=== PATIENT | female | born 1990 | race Caucasian/White ===

== ENCOUNTER → 2018-05-17 12:37 | Outpatient (CLI) | payer OTHER, SELFPAY ==
[2018-05-17 14:11] LABS: Absolute Lymphocyte Count 1.82 X10^3/ul (0.83-4.51); Absolute Neutrophil Count 3.6 X10^3/uL (2.0-7.7); Basophil# 0.03 X10^3/uL; Basophil% 0.5 % (0-1); Eosinophil# 0.04 X10^3/uL; Eosinophils% 0.7 % (0-5); Hemoglobin 15.2 g/dl (12.0-15.0); Lymphocyte # 1.82 X10^3/ul (4.0); Lymphocyte % 30.3 % (19-41); Mean Corp Hgb Conc 34.5 g/gl (32-36); Mean Corpuscular Hgb 31.4 pg (27.0-32.0); Mean Corpuscular Volume 90.9 fL (81-99); Mean Platelet Vol. 10.1 fl (6.2-12.0); Monocyte# 0.56 X10^3/uL; Monocyte% 9.3 % (0-10); Neutrophil # 3.55 X10^3/uL (2.7-7.7); POSITIVE COUNT NO; POSITIVE DIFFERENTIAL NO; POSITIVE MORPHOLOGY NO; Platelet Count 172 K/mm3 (150-450); RBC Distribution Width CV 12.3 % (11.6-14.6); RBC Distribution Width SD 40.9 fl (35.1-43.9); Red Blood Count 4.84 M/mm3 (4.2-5.4)
[2018-05-17 14:34] LABS: ALB/GLOB Ratio 1.2 RATIO (0.9-2.4); AST(SGOT) 18 U/L (15-37); Alanine Aminotransfer ALT/SGPT 24 U/L (13-56); Albumin, Serum 4.2 g/dL (3.2-5.0); Alkaline Phosphatase 52 U/L (45-117); Amylase 85 U/L (25-115); Anion Gap 8 (5-15); BUN 12 mg/dL (7-18); BUN/Creat Ratio 10.9 RATIO (10-20); Calcium,Total 9.2 mg/dL (8.5-10.1); Chloride 104 mmol/L (98-107); EST Glomerular Filtration Rate 63 mL/min (>60); Est Glom Filt Rate - Afr Amer 77 mL/min (>60); Globulin 3.6 g/dL (2.2-4.2); Glucose 80 mg/dL (74-106); Lipase 324 U/L (73-393); Potassium 3.7 mmol/L (3.5-5.1); Protein, Total 7.8 g/dL (6.4-8.2); Sodium Level 140 mmol/L (136-145)
== END ==
PROVIDERS: Family Provider Family Medicine; PCP Family Medicine; Visit Provider Family Medicine
DX: R10.84 Generalized abdominal pain (principal)
CPT/HCPCS: 36415; 80053; 82150; 83690; 85025

== ENCOUNTER → 2018-05-20 09:51 | Outpatient (CLI) | payer OTHER, SELFPAY ==
--- NOTE | 2018-05-20 09:53 | US_ITS ---
STUDY: ABDOMINAL ULTRASOUND - RIGHT UPPER QUADRANT REASON FOR VISIT: Female, 27 years old. General intermittent abdominal pain with nausea and vomiting. TECHNIQUE: Ultrasound evaluation of the right upper quadrant was performed with real-time and static garcia-scale imaging. TECHNICAL QUALITY: Adequate. COMPARISON: None. FINDINGS: Liver: The liver measures 15.2 cm. There is normal echogenicity of the liver. The bile ducts are within normal limits. There is hepatic color flow. The direction of portal flow is hepatopetal. There is no demonstrated mass lesion. Gallbladder: Normal distended gallbladder. The gallbladder wall measures 2.3 mm. There is a negative sonographic Jacobo's sign. There is no pericholecystic fluid. There are no gallstones. Common Bile Duct (C.B.D.): The common bile duct measures 3.6 mm. Pancreas: Normal size of the head, body and tail of the pancreas. There is normal echogenicity of the pancreas. There is no demonstrated pancreatic mass or cyst. Right Kidney: Normal size of the right kidney. The right kidney measures 9.8 cm x 4.5 cm 4.8 cm. Normal renal cortex. The right cortex measures 1.2 cm. There is a 1.1 cm x 0.9 cm x 1.2 cm right renal cyst. There is no right hydronephrosis. US/Abdomen Limited IMPRESSION: Small right renal cyst. Electronically Signed: Glen Catherine MD at 15:35 EDT Tel [phone], Service support ,
== END ==
PROVIDERS: Family Provider Family Medicine; PCP Family Medicine; Visit Provider Family Medicine
DX: R11.2 Nausea with vomiting, unspecified (principal)
CPT/HCPCS: 76705

== ENCOUNTER → 2021-08-18 08:18 | Outpatient (CLI) | payer BC, SELFPAY ==
[2021-08-18 11:01] LABS: Anion Gap 7 (5-15); BUN 11 mg/dL (7-18); BUN/Creat Ratio 13.3 RATIO (10-20); Calcium,Total 8.8 mg/dL (8.5-10.1); Chloride 105 mmol/L (98-107); Cholesterol 208 mg/dL (200); Creatinine, Serum 0.83 mg/dL (0.55-1.02); EST Glomerular Filtration Rate 86 mL/min (>60); Est Glom Filt Rate - Afr Amer 104 mL/min (>60); Ferritin 12 ng/mL (8-252); Glucose 81 mg/dL (74-106); High Density Lipoprotein 77 mg/dL; Iron 133 ug/dL (50-170); Potassium 3.7 mmol/L (3.5-5.1); Sodium Level 138 mmol/L (136-145); Thyroid Stim Hormone (TSH) 1.94 uIU/mL (0.358-3.74); Triglycerides 145 mg/dL; Very Low Density Lipoprotein 29 mg/dL (5-40)
[2021-08-18 11:07] LABS: Vitamin D,25 Hydroxy 50.2 ng/mL
== END ==
PROVIDERS: PCP Family Medicine; Referring Provider Family Medicine; Visit Provider Family Medicine
DX: F41.9 Anxiety disorder, unspecified (principal); R53.83 Other fatigue; Z13.1 Encounter for screening for diabetes mellitus; Z13.220 Encounter for screening for lipoid disorders
CPT/HCPCS: 36415; 80048; 80061; 82306; 82728; 83540; 84443

== ENCOUNTER 2022-02-15 09:55 | Outpatient (CLI) | payer BC, SELFPAY ==
--- NOTE | 2022-02-15 10:16 | ECHOD_ITS ---
Reason For Study: BICUSPID AO Procedure This was a 2D Doppler, Color Flow transthoracic echocardiogram. Exam performed in department. Left Ventricle Normal LV size. Left ventricular systolic function is normal. The estimated ejection fraction is 55 %. Normal diastology for age. No regional wall motion abnormalities noted. Right Ventricle Normal RV size. Normal systolic function. Atria Normal left atrium. Normal right atrium. Mitral Valve Normal mitral valve. Tricuspid Valve Normal tricuspid valve. Mild tricuspid valve insufficiency. Pulmonary artery systolic pressure is 23 mmHg. Aortic Valve Bicuspid aortic valve. Mild aortic stenosis. Pulmonic Valve Normal pulmonic valve. Great Vessels Normal aortic root. The pulmonary artery is normal size. Normal inferior vena cava. Pericardium/Pleural No pericardial effusion. MMode/2D Measurements & Calculations LVIDd: 4.7 cm IVSd: 0.75 cm LVOT diam: 1.6 cm LVIDs: 2.5 cm LVPWd: 0.57 cm LVOT area: 2.0 cm2 RVDd: 2.6 cm FS: 46.8 % Ao root diam: 2.2 cm LAV(MOD-sp4): 22.7 ml LVAd ap4: 24.7 cm2 LVLd ap4: 6.6 cm EDV(MOD-sp4): 76.1 ml EDV(sp4-el): 78.3 ml LVAs ap4: 14.1 cm2 LVLs ap4: 5.6 cm ESV(MOD-sp4): 30.3 ml ESV(sp4-el): 30.2 ml EF(MOD-sp4): 60.2 % EF(sp4-el): 61.4 % SV(MOD-sp4): 45.8 ml SV(sp4-el): 48.1 ml LA A4 area: 11.0 cm2 LA dimension(2D): 2.5 cm RA A4 area: 12.0 cm2 Doppler Measurements & Calculations MV E max hi: 113.8 cm/sec Lat Peak E' Hi: 12.0 cm/sec Med Peak E' Hi: 11.7 cm/sec MV A max hi: 59.9 cm/sec E/E' lat: 9.5 E/E' med: 9.7 MV E/A: 1.9 Ao V2 max: 183.9 cm/sec LV V1 max: 122.9 cm/sec SV(LVOT): 50.0 ml Ao max P.5 mmHg LV V1 max P.0 mmHg Ao V2 mean: 131.1 cm/sec LV V1 mean P.3 mmHg Ao mean P.6 mmHg LV V1 mean: 86.3 cm/sec Ao V2 VTI: 38.7 cm LV V1 VTI: 25.5 cm CHINMAY(I,D): 1.3 cm2 CHINMAY(V,D): 1.3 cm2 PA V2 max: 78.0 cm/sec TR max hi: 220.0 cm/sec TR max P.4 mmHg ECHO/Echo Complete Interpretation Summary Normal LV size. Left ventricular systolic function is normal. The estimated ejection fraction is 55 %. Bicuspid aortic valve. Normal aortic root. Mild aortic stenosis. Ordering Physician: Clarke Andino Referring Physician: Clarke Andino Performed By: Donna Zhao RCS
== END 2022-02-15 23:59 | disposition home or self-care (01) ==
PROVIDERS: PCP Family Medicine; Referring Provider Internal Medicine Cardiovascular Disease; Visit Provider Internal Medicine Cardiovascular Disease
DX: Q23.1 Congenital insufficiency of aortic valve (principal); Q25.1 Coarctation of aorta
CPT/HCPCS: 93306

== ENCOUNTER → 2022-03-29 | Outpatient (CLI) | payer BC, SELFPAY ==
[2022-03-29 10:49] LABS: Absolute Lymphocyte Count 1.43 X10^3/uL (0.83-4.51); Absolute Neutrophil Count 2.4 X10^3/uL (2.0-7.7); Basophil# 0.03 X10^3/uL; Basophil% 0.7 % (0-1); Eosinophil# 0.11 X10^3/uL; Eosinophils% 2.5 % (0-5); Hematocrit 42.8 % (37-47); Hemoglobin 14.2 g/dL (12.0-15.0); Lymphocyte # 1.43 X10^3/ul (0.83-4.51); Lymphocyte % 32.4 % (19-41); Mean Corp Hgb Conc 33.2 g/dL (32-36); Mean Corpuscular Hgb 30.3 pg (27.0-32.0); Mean Corpuscular Volume 91.5 fL (81-99); Mean Platelet Vol. 9.1 fl (6.2-12.0); Monocyte# 0.48 X10^3/uL; Monocyte% 10.9 % (0-10); NRBC Flagged by Analyzer 0 % (0-5); Neutrophil # 2.35 X10^3/uL (2.7-7.7); Neutrophil % 53.3 % (47-70); Platelet Count 167 K/mm3 (150-450); RBC Distribution Width CV 12.2 % (11.6-14.6); RBC Distribution Width SD 40.7 fl (35.1-43.9); Red Blood Count 4.68 M/mm3 (4.2-5.4); White Blood Count 4.4 K/mm3 (4.4-11.0)
[2022-03-29 10:59] LABS: Anion Gap 3 (5-15); BUN 17 mg/dL (7-18); BUN/Creat Ratio 21.4 RATIO (10-20); Calcium,Total 8.9 mg/dL (8.5-10.1); Chloride 107 mmol/L (98-107); Cholesterol 158 mg/dL (200); EST Glomerular Filtration Rate 90 mL/min (>60); Est Glom Filt Rate - Afr Amer 108 mL/min (>60); Glucose 94 mg/dL (74-106); High Density Lipoprotein 53 mg/dL; Potassium 4.1 mmol/L (3.5-5.1); Sodium Level 138 mmol/L (136-145); T4 Free Direct 0.86 ng/dL (0.76-1.46); Triglycerides 67 mg/dL; Very Low Density Lipoprotein 13 mg/dL (5-40)
== END | disposition home or self-care (01) ==
PROVIDERS: PCP Family Medicine; Referring Provider Family Medicine; Visit Provider Nurse Practitioner Family
DX: R63.5 Abnormal weight gain (principal)
CPT/HCPCS: 36415; 80048; 80061; 83036; 84439; 84443; 85025

== ENCOUNTER → 2022-11-30 | Outpatient (CLI) | payer OTHER, SELFPAY ==
[2022-11-30 17:44] LABS: Hemoglobin 14.2 g/dL (12.0-15.0); Mean Corpuscular Hgb 30.6 pg (27.0-32.0); Mean Corpuscular Volume 92.7 fL (81-99); Platelet Count 185 K/mm3 (150-450); RBC Distribution Width CV 12.6 % (11.6-14.6); RBC Distribution Width SD 42.7 fl (35.1-43.9); Red Blood Count 4.64 M/mm3 (4.2-5.4); White Blood Count 4.8 K/mm3 (4.4-11.0)
[2022-11-30 18:03] LABS: Vitamin D,25 Hydroxy 60.8 ng/mL
[2022-11-30 18:21] LABS: ALB/GLOB Ratio 0.9 RATIO (0.9-2.4); AST(SGOT) 20 U/L (15-37); Alanine Aminotransfer ALT/SGPT 24 U/L (13-56); Albumin, Serum 3.3 g/dL (3.2-5.0); Alkaline Phosphatase 48 U/L (45-117); Anion Gap 9 (5-15); BUN 16 mg/dL (7-18); BUN/Creat Ratio 17.9 RATIO (10-20); Calcium,Total 8.8 mg/dL (8.5-10.1); Chloride 106 mmol/L (98-107); EST Glomerular Filtration Rate 78 mL/min (>60); Est Glom Filt Rate - Afr Amer 94 mL/min (>60); Globulin 3.5 g/dL (2.2-4.2); Glucose 79 mg/dL (74-106); Potassium 3.8 mmol/L (3.5-5.1); Protein, Total 6.8 g/dL (6.4-8.2); Sodium Level 139 mmol/L (136-145); Thyroid Stim Hormone (TSH) 0.94 uIU/mL (0.358-3.74)
== END | disposition home or self-care (01) ==
LOC: MFPLAB 15:00
PROVIDERS: PCP Family Medicine; Referring Provider Family Medicine; Visit Provider Family Medicine
DX: F32.A Depression, unspecified (principal)
CPT/HCPCS: 36415; 80053; 82306; 84443; 85027

== ENCOUNTER → 2023-12-14 | Outpatient (CLI) | payer OTHER, SELFPAY ==
--- OUTSIDE RECORDS SUMMARY | 2023-12-14 08:23 | XMS RPT_ITS | CCD ---
Author Name Unknown Address [address] [place] [address] Organization [facility] Care Team Providers Care Internal Medicine Hospitalist Name Role Phone MD Andino Cyril S Unavailable Pita FERRER, Radha Mehta Unavailable [phone] MD Andino Cyril S Unavailable Sandy Steward MD Primary Care Provider Sandy Steward MD Primary Care Provider Sandy Steward MD Primary Care Provider Sandy Steward MD Primary Care Provider NEREIDA MENDOZA Attending Unavailable SANDY STEWARD Primary Care Unavailabl e Allergies Allergy Classification Reported Allergen(s) Allergy Type Date of Onset Reaction(s) Facility (12 sources) Seasonal allergy; Translations: [SEASONAL ALLERGIES] Propensity to adverse reactions 03-14-2016 [facility] Work Phone: Medications Current Medications Medication Drug Class(es) Dates Sig (Normalized) Sig (Original) 168 hr ethinyl estradiol 0.90089 mg/hr / norelgestromin 0.65201 mg/hr transdermal system (20 sources) Progestin, Estrogen Start: 10-01-2023 apply 1 dose transdermal route every week XULANE 150-35 mcg/24 hr patch Indications: Encounter for surveillance of transdermal patch hormonal contraceptive device APPLY 1 PATCH DIRECTED ONCE A WEEK, CONTINUOUS USE. NO IN ACTIVE WEEK. 12 Patch 4 10/01/2023 Active Completed/Discontinued Medications Medication Drug Class(es) Dates Sig (Normalized) Sig (Original) amoxicillin 500 mg oral tablet (7 sources) Penicillin-class Antibacterial Start: 09-25-2017 take 4 tablets by mouth every hour AMOXICILLIN 500 MG TABS 4 tablets by mouth 1 hr prior to procedure AMOXICILLIN [id number] Clarke Andino MD Problems Active Problems Problem Classification Problem Date Documented Date Episodic/Chronic Cardiac and circulatory congenital anomalies (17 sources) Coarctation of aorta; Translations: [Bicuspid aortic valve] Onset: 07-27-2015 07-27-2015 Chronic Contraceptive and procreative management (8 sources) Patient encounter status; Translations: [Encounter for removal of intrauterine contraceptive device] Episodic Past or Other Problems Problem Classification Problem Date Documented Date Episodic/Chronic Cardiac and circulatory congenital anomalies (3 sources) History of repair of coarctation of aorta; Translations: [Personal history of (corrected) congenital malformations of heart and circulatory system] Onset: 07-27-2015 07-27-2015 Episodic Results Test Name Value Interpretation Reference Range Facil ity Vital Signs Date Time Vital Sign Value Performing Clinician Arsen selby 10-01-2023 06:55-0500 Body height 157.5 cm Nereida Gheens ANALOG DEVICE DESIGNER.HEAD WRESTLING COACH Work Phone: [facility] 10-01-2023 06:55-0500 Body weight 66.13 kg Nereida Gheens ANALOG DEVICE DESIGNER.HEAD WRESTLING COACH Work Phone: [facility] 10-01-2023 06:55-0500 Diastolic blood pressure 60 mm[Hg] Nereida Reji ANALOG DEVICE DESIGNER.HEAD WRESTLING COACH Work Phone: [facility] 10-01-2023 06:55-0500 Systolic blood pressure 120 mm[Hg] Nereida Gheens ANALOG DEVICE DESIGNER.HEAD WRESTLING COACH Work Phone: [facility] 05-29-2022 08:01-0400 Body weight 63.96 kg Nereida Reji ANALOG DEVICE DESIGNER.HEAD WRESTLING COACH Work Phone: [facility] 05-29-2022 08:01-0400 Diastolic blood pressure 64 mm[Hg] Nereida Reji ANALOG DEVICE DESIGNER.HEAD WRESTLING COACH Work Phone: [facility] 05-29-2022 08:01-0400 Systolic blood pressure 104 mm[Hg] Nereida Reji ANALOG DEVICE DESIGNER.HEAD WRESTLING COACH Work Phone: [facility] 07-12-2017 16:28-0400 BMI (Body Mass Index) 22.29 kg/m2 MD [facility] Work Phone: 07-12-2017 16:28-0400 BP Diastolic 48 mm[Hg] MD [facility] Work Phone: 07-12-2017 16:28-0400 BP Diastolic 64 mm[Hg] MD [facility] Work Phone: 07-12-2017 16:28-0400 BP Systolic 84 mm[Hg] MD [facility] Work Phone: 07-12-2017 16:28-0400 BP Systolic 110 mm[Hg] MD [facility] Work Phone: 07-12-2017 16:28-0400 Height 154.94 cm MD [facility] Work Phone: 07-12-2017 16:28-0400 Pulse (Heart Rate) 64 /min MD [facility] Work Phone: 07-12-2017 16:28-0400 Respiratory Rate 20 /min Clarke Andino MD [facility] Work Phone: 07-12-2017 16:28-0400 Weight 53.52 kg MD [facility] Work Phone: 02-22-2016 16:25-0400 BSA (Body Surface Area) 1.48 m2 Clarke Andino MD [facility] Work Phone: Encounters Encounter Date Encounter Type Care Provider Facility Start: 10-01-2023 End: 10-01-2023 ambulatory NEREIDA REJI Facility:[facility] Start: 10-01-2023 End: 10-01-2023 Patient encounter procedure Nereida Reji ANALOG DEVICE DESIGNER.HEAD WRESTLING COACH Work Phone: OB/Gynecology Procedures Date Procedure Procedure Detail Performing Clinician Start: 02-22-2016 End: 02-22-2016 JANY Andino MD Start: 02-22-2016 End: 02-22-2016 Follow Up Appt 1 year Clarke Andino MD Start: 02-22-2016 End: 02-22-2016 JANY Andino MD Start: 02-22-2016 End: 02-22-2016 Follow Up Appt 1 year Clarke Andino MD Start: 07-28-2015 End: 12-10-2015 *ALESSANDRA Andino MD Start: 07-28-2015 End: 07-28-2015 JANY Andino MD Start: 07-28-2015 End: 12-10-2015 Echocardiography Clarke Andino MD Start: 07-28-2015 End: 07-28-2015 Follow Up Appt 6 months Pradip Christian Start: 07-28-2015 End: 12-10-2015 Lipid 1996 panel - Serum or Plasma Clarke Andino MD Start: 07-28-2015 End: 12-10-2015 Mra abdomen w/wo contrast material Clarke Andino MD Start: 07-28-2015 End: 12-10-2015 *ALESSANDRA Andino MD Start: 07-28-2015 End: 07-28-2015 JANY Andino MD Start: 07-28-2015 End: 12-10-2015 Echocardiography Clarke Andino MD Start: 07-28-2015 End: 07-28-2015 Follow Up Appt 6 months Pradip Christian Start: 07-28-2015 End: 12-10-2015 Lipid panel [AGGREGATE] Pradip Christian Start: 07-28-2015 End: 12-10-2015 Mri angio, abdom w orw/o dye Clarke Andino MD Start: 07-27-2015 History of repair of coarctation of aorta History of aortic coarctation repair Niurka Shukla MD Work Phone: Plan of Treatment Date Care Activity Detail Author Start: 10-07-2026 HPV TESTING HPV TESTING [facility] Start: 10-07-2026 PAP TESTING PAP TESTING [facility] Start: 03-22-2026 Urine microalbumin profile [facility] Start: 07-06-2023 Covid-19 Vaccine () Covid-19 Vaccine () [facility] Start: 07-06-2023 Influenza vaccination [facility] Start: 11-05-2022 DEPRESSION ASSESSMENT DEPRESSION ASSESSMENT [facility] Start: 07-06-2022 Influenza vaccination INFLUENZA (#1) [facility] Start: 11-05-2021 DEPRESSION ASSESSMENT DEPRESSION ASSESSMENT [facility] Start: 10-21-2021 COVID-19 VACCINE (4 - Booster for Moderna series) COVID-19 VACCINE (4 - Booster for Moderna series) [facility] Start: 10-21-2021 COVID-19 VACCINE (4 - Moderna series) COVID-19 VACCINE (4 - Moderna series) [facility] Start: 07-11-2018 End: 07-11-2018 Appointment Appointment [facility] Work Phone: Start: 07-12-2017 End: 07-12-2017 HVAC JOURNEYMAN HVAC JOURNEYMAN [facility] Work Phone: Start: 07-12-2017 End: 07-12-2017 Follow Up Appt 1 year Follow Up Appt 1 year [facility] Work Phone: Start: 07-12-2017 End: 07-12-2017 HVAC JOURNEYMAN HVAC JOURNEYMAN [facility] Work Phone: Start: 07-12-2017 End: 07-12-2017 Follow Up Appt 1 year Follow Up Appt 1 year [facility] Work Phone: Start: 02-22-2016 End: 02-22-2016 HVAC JOURNEYMAN HVAC JOURNEYMAN [facility] Work Phone: Start: 02-22-2016 End: 02-22-2016 Follow Up Appt 1 year Follow Up Appt 1 year [facility] Work Phone: Start: 02-22-2016 End: 02-22-2016 HVAC JOURNEYMAN HVAC JOURNEYMAN [facility] Work Phone: Start: 02-22-2016 End: 02-22-2016 Follow Up Appt 1 year Follow Up Appt 1 year [facility] Work Phone: Start: 07-28-2015 End: 12-10-2015 *BMP *BMP [facility] Work Phone: Start: 07-28-2015 End: 07-28-2015 HVAC JOURNEYMAN HVAC JOURNEYMAN [facility] Work Phone: Start: 07-28-2015 End: 07-28-2015 Echocardiography Echocardiogram (complete) [facility] Work Phone: Start: 07-28-2015 End: 07-28-2015 Follow Up Appt 6 months Follow Up Appt 6 months [facility] Work Phone: Start: 07-28-2015 End: 08-02-2015 Lipid panel [AGGREGATE] *Lipid Profile CC PCP [facility] Work Phone: Start: 07-28-2015 End: 07-28-2015 Mra abdomen w/wo contrast material MRA (Various) [facility] Work Phone: Start: 07-28-2015 End: 12-10-2015 *BMP *BMP [facility] Work Phone: Start: 07-28-2015 End: 07-28-2015 HVAC JOURNEYMAN HVAC JOURNEYMAN [facility] Work Phone: Start: 07-28-2015 End: 07-28-2015 Echocardiography Echocardiogram (complete) [facility] Work Phone: Start: 07-28-2015 End: 07-28-2015 Follow Up Appt 6 months Follow Up Appt 6 months [facility] Work Phone: Start: 07-28-2015 End: 08-02-2015 Lipid panel [AGGREGATE] *Lipid Profile CC PCP [facility] Work Phone: Start: 07-28-2015 End: 07-28-2015 Mri angio, abdom w orw/o dye MRA (Various) [facility] Work Phone: Start: 2003 Adult depression screening assessment DEPRESSION SCREENING [facility] Start: 1991 HEPATITIS B (1 of 3 - 3-dose series) HEPATITIS B (1 of 3 - 3-dose series) [facility] Start: 1991 Hepatitis B Vaccine (1 of 3 - 3-dose series) Hepatitis B Vaccine (1 of 3 - 3-dose series) [facility] Removal intrauterine device iud REMOVE INTRAUTERINE DEVICE Procedures Routine Encounter for IUD removal Ordered: 05/22/2022 [facility] Work Phone: Immunizations Immunization Date Immunization Notes Care Provider Olga camp 08-09-2021 influenza virus vacc ine, unspecified formulation Nereida Mendoza APRN.CNP Work Phone: [facility] 03-22-2016 tetanus toxoid, redu willie diphtheria toxoid, and acellular pertussis vaccine, adsorbed Niurka Shukla MD Work Phone: [facility] Payers Date Payer Category Payer Private Health Insurance [employer] OAP [id number] 2022-Present [phone] [address] [place] [address] Open Access [id number] 2022 Private Health Insurance [id number] 2020 Unknown LEXI LAWSON PPO [id number] 2020-Present [phone] [address] [place] [address] PPO [id number] 2020 Unknown LEXI LAWSON PPO [id number] 2020-Present [phone] [address] [place] [address] PPO [id number] Social History Date Type Detail Facility Start: 03-14-2016 End: 10-01-2023 Tobacco smoking status NHIS Never smoked tobacco [facility] Work Phone: Start: 03-14-2016 End: 10-01-2023 Tobacco use and exposure Smokeless tobacco non-user [facility] Work Phone: Start: 12-30-2021 End: 10-01-2023 Alcohol intake Current drinker of alcohol (finding) [facility] Start: 09-17-2020 History SDOH Alcohol Frequency 4 [facility] Start: 09-17-2020 History SDOH Alcohol Std Drinks 1 [facility] Start: 10-07-2021 History SDOH Alcohol Comment occasional [facility] Start: 09-17-2020 History SDOH Social Connections Phone 5 [facility] Start: 09-17-2020 History SDOH Social Connections Membership 2 [facility] Start: 09-17-2020 History SDOH Social Connections Living 3 [facility] Start: 1990 Sex Assigned At Not on file [facility] Start: 05-29-2022 End: 07-24-2023 History of Social function [facility] Start: 05-29-2022 End: 07-24-2023 Tobacco use panel [facility] Do you belong to any clubs or organizations such as faith groups, unions, fraternal or athletic groups, or school groups? No [facility] Are you now , , , , never or living with a partner? [facility] How often to you hav e a drink containing alcohol? 2-3 time sa week [facility] How many standard dr inks containing alcohol do you have on a typical day? 1 or 2 [facility] How often do you hav e 6 or more drinks on 1 occasion? Never [facility] How hard is it for y ou to pay for the very basics like food, housing, medical care, and heating Not hard at all [facility] Do you feel stress - tense, restless, nervous, or anxious, or unable to sleep at night because your mind is troubled all the time - these days [OSQ] Not at all [facility] (I/We) worried wheth er (my/our) food would run out before (I/we) got money to buy more. Never true [facility] Start: 10-01-2023 Education 17 [facility] NEGATED: Highlighted rowStart: GIANLUCA History of tobacco use Passive smoker [facility] Work Phone: Clinical Notes 03-22-2022 to 10-01-2023 Nereida Mendoza APRN.CNP - 10/01/2023 6:54 AM ESTTelephone Encounter - Greta Magallanes RN - 09/11/2023 11:34 AM ESTTelephone Encounter - Stephanie Fischer RN - 07/12/2023 9:33 AM EDT Note Date & Type Note Facility 10-01-2023 Note HNO ID: [id number] Author: Nereida Mendoza APRN.HEAD WRESTLING COACH Service: ? Author Type: Nurse Practitioner Type: Progress Notes Filed: 10/01/2023 7:27 AM Note Text: patient declined fire control technician g Breanna is a 33 year old who presents for an annual gynecologic exam without complaints. She trying to convince her to get a vasectomy Menses: cycles every 21-24 days and 5 days of flow. Contraception: patch HPV vaccine: Yes Last Pap: 10/14/2021 normal HPV: 10/11/2021 negative History of abnormal pap: No Last mammogram: never Sexually active: Yes Pain with intercourse: No Postcoital bleeding: No OB History T0 L0 SAB0 IAB0 Ectopic0 Multiple0 Live Births0 Patient Advocate History LMP: 09/06/2023, IUD Age at Menarche: Age at First : Age at Menopause: Patient Advocate History Comments: Sexual Activity: Yes; Male; patch Contraception: Other PAST MEDICAL HISTORY Diagnosis Date Stridor PAST SURGICAL HISTORY Procedure Laterality Date APPENDECTOMY 11/05/2000 HEART SURGERY HX 1990 coarctation of aorta repair PAST SURGICAL HISTORY OF ingrown toe nails x4 FAMILY HISTORY Problem Relation Age of Onset other (endometriosis) Mother Colon Cancer Maternal Grandmother other (heart disease) Maternal Grandmother maternal grandfather Hypertension Maternal Grandfather Breast Cancer Paternal Grandmother SOCIAL HISTORY Social History Tobacco Use Smoking status: Never Passive exposure: Never Smokeless tobacco: Never Vaping Use Vaping Use: Never used Substance Use Topics Alcohol use: Yes Comment: occasional Drug use: No REVIEW OF SYSTEMS Abdomen: No abdominal pain, nausea, vomiting, diarrhea, or constipation. No bloating, early satiety, indigestion, or increased flatulence. Bladder: No dysuria, gross hematuria, urinary frequency, urinary urgency, or incontinence. Breast: No breast lumps, nipple d/c, overlying skin changes, redness or skin retraction. Allergies and current medication updated:Yes EXAM: Ht 5' 2 (1.58m) Wt 145 lb 12.8 oz (66.1kg) LMP 09/06/2023 BMI 26.66 kg/(m2). GENERAL: pleasant, female in no apparent distress HEENT: Normocephalic, atraumatic, mucus membranes moist, and no lesions NECK: Supple, full range of motion, no adenopathy, and thyroid normal DERMATOLOGY: Normal, without lesions, non-icteric, and non-hirsute BREAST: soft, non-tender, symmetric, no dominant mass, normal nipple-areolar complex, no lymphadenopathy, and no nipple discharge CHEST: Normal inspiratory effort ABDOMEN: soft, non-tender, and no masses PELVIC: external genitalia normal, normal Bartholin's glands, urethra, Setauket's glands, no vulvar lesions, no cervical lesions, good vaginal support, physiologic discharge present, normal appearing perineal body and perianal region BIMANUAL: uterus normal size, shape and consistency, no adnexal masses, and non-tender RECTOVAGINAL: deferred. NEURO: alert and oriented x3,exam grossly non-focal EXTREMITIES: normal ASSESSMENT/PLAN: 1) Health maintenance: Pap/HPV up to date. Mammogram starting age 40. Nutrition, exercise and routine health maintenance exams reviewed. Calcium/Vitamin D supplementation information provided. 2) Contraception: patch. Contraceptive options reviewed and information provided. 3) STD screening: Declined STD check. 4) Follow up one year or sooner as needed Nereida Mendoza APRN.RENETTA [facility] 10-01-2023 History of Presen t illness Narrative patient declined fire control technician g Breanna is a 33 year old who presents for an annual gynecologic exam without complaints. She trying to convince her to get a vasectomy Menses: cycles every 21-24 days and 5 days of flow. Contraception: patch HPV vaccine: Yes Last Pap: 10/14/2021 normal HPV: 10/11/2021 negative History of abnormal pap: No Last mammogram: never Sexually active: Yes Pain with intercourse: No Postcoital bleeding: No OB History T0 L0 SAB0 IAB0 Ectopic0 Multiple0 Live Births0 Patient Advocate History LMP: 09/06/2023, IUD Age at Menarche: Age at First : Age at Menopause: Patient Advocate History Comments: Sexual Activity: Yes; Male; patch Contraception: Other PAST MEDICAL HISTORY Diagnosis Date Stridor PAST SURGICAL HISTORY Procedure Laterality Date APPENDECTOMY 11/05/2000 HEART SURGERY HX 1990 coarctation of aorta repair PAST SURGICAL HISTORY OF ingrown toe nails x4 FAMILY HISTORY Problem Relation Age of Onset other (endometriosis) Mother Colon Cancer Maternal Grandmother other (heart disease) Maternal Grandmother maternal grandfather Hypertension Maternal Grandfather Breast Cancer Paternal Grandmother SOCIAL HISTORY Social History Tobacco Use Smoking status: Never Passive exposure: Never Smokeless tobacco: Never Vaping Use Vaping Use: Never used Substance Use Topics Alcohol use: Yes Comment: occasional Drug use: No REVIEW OF SYSTEMS Abdomen: No abdominal pain, nausea, vomiting, diarrhea, or constipation. No bloating, early satiety, indigestion, or increased flatulence. Bladder: No dysuria, gross hematuria, urinary frequency, urinary urgency, or incontinence. Breast: No breast lumps, nipple d/c, overlying skin changes, redness or skin retraction. Allergies and current medication updated:Yes EXAM: Ht 5' 2 (1.58m) Wt 145 lb 12.8 oz (66.1kg) LMP 09/06/2023 BMI 26.66 kg/(m^2). GENERAL: pleasant, female in no apparent distress HEENT: Normocephalic, atraumatic, mucus membranes moist, and no lesions NECK: Supple, full range of motion, no adenopathy, and thyroid normal DERMATOLOGY: Normal, without lesions, non-icteric, and non-hirsute BREAST: soft, non-tender, symmetric, no dominant mass, normal nipple-areolar complex, no lymphadenopathy, and no nipple discharge CHEST: Normal inspiratory effort ABDOMEN: soft, non-tender, and no masses PELVIC: external genitalia normal, normal Bartholin's glands, urethra, Setauket's glands, no vulvar lesions, no cervical lesions, good vaginal support, physiologic discharge present, normal appearing perineal body and perianal region BIMANUAL: uterus normal size, shape and consistency, no adnexal masses, and non-tender RECTOVAGINAL: deferred. NEURO: alert and oriented x3,exam grossly non-focal EXTREMITIES: normal ASSESSMENT/PLAN: 1) Health maintenance: Pap/HPV up to date. Mammogram starting age 40. Nutrition, exercise and routine health maintenance exams reviewed. Calcium/Vitamin D supplementation information provided. 2) Contraception: patch. Contraceptive options reviewed and information provided. 3) STD screening: Declined STD check. 4) Follow up one year or sooner as needed Nereida Mendoza APRN.HEAD WRESTLING COACH documented in this encounter [facility] 09-11-2023 Miscellaneous Notes [facility] calling to request refill of Xulane patch. Patient has an annual on 10/01/23. Requested Prescriptions Pending Prescriptions Disp Refills XULANE 150-35 mcg/24 hr patch 12 Patch 0 Sig: APPLY 1 PATCH DIRECTED ONCE A WEEK, CONTINUOUS USE. NO IN ACTIVE WEEK. Greta Magallanes RN documented in this encounter [facility] 07-12-2023 Miscellaneous Notes Patient notified. Stephanie Fischer RN Yes patient should take a 7-day break from the patch that should resolve her spotting issues. I can discuss other options with her at her appointment. Nereida Mendoza APRN.CNP For the last 2 weeks patient has had spotting while using the Xulane patch continuously. Similar thing happened back in May. See 05/17/23 phone note. Patient did remove the patch for 7 days to have a menses as instructed in May. Inquired if patient desires another form of control. Patient declined. She has the same burning sensation around her nipple. Asking if this is hormonal. Denies any lumps, bumps, or nipple drainage. Scheduled her an annual exam for 07/24/23. Patient may take a break week from the patch. Aware RM is back in the office on . Greta Magallanes RN documented in this encounter [facility] 05-17-2023 Miscellaneous Notes Patient notified. Greta Magallanes RN Tell her to remove the patch for 7 days, have a period and then start a new patch up again. Patient states she hadn't noticed until recently that her patch directions state to use continuously. Patient is in her dong consecutive week. States she started having dark maroon colored bleeding 2 weeks ago. It was not the week she normally would have a menses and skipped a patch. Needing to change her pad four times a day for cleanliness. Having mild dull intermittent cramping. Her breast around her nipples have been tender and have a burning sensation. Please advise. Greta Magallanes RN documented in this encounter [facility] 11-02-2022 Miscellaneous Notes Patient notified. She wants brand name Xulane now instead. States she has taken that in the past and did well. Please file. Stephanie Fischer RN The Ortho Evra patch is not on the market anymore it was replace with Xulane. Nereida Mendoza APRN.CNP See 10/23/22 refill request. Patient called. States that she is wanting a prescription for the Ortho Evra patch instead of the Xulane. Attempted to pend the prescription, but RX defaults to Xulane or generic Zafemy. Patient states she already picked up the RX sent on 10/23/22. If Ortho Evra RX sent she will need a prior authorization. Aware provider is out of the office until tomorrow. Greta Magallanes RN documented in this encounter [facility] 10-23-2022 Miscellaneous Notes Patient having an issue with [facility] and her control patch. Pharmacy has switched her Xulane for generic Zafemy. Patient states she is having issues with this patch where it bubbles/peels off. Patient states recent patch fell off and she wasn't aware. Patient has contacted [facility] in [place] and is going to have her Rx transferred there, but needs a new Rx. Please file pended Rx if appropriate. Katya Vergara RN documented in this encounter [facility] 10-05-2022 Miscellaneous Notes Patient notified. Stephanie Fischer RN New rx sent in. Nereida Mendoza APRN.RENETTA [place] and is planning to use Xulane patch continuously to skip menses while traveling. Patient asking if she can get a Rx that states continuous use get 4 patches while traveling. Please advise. documented in this encounter [facility] 07-17-2022 Miscellaneous Notes Patient given message If control is not used correctly it can't be counted on as contraception. If possible I recommend finding a pharmacy that has the patches & using correctly. I recommend using condoms consistently until next menses if not using patches per instructions. Wilma Linn MD Patient on Xulane patch. States she had her menses last week and due to place a new patch tonight. Her pharmacy is out of the patches and her insurance won't pay for a refill until Sunday. Asking if it would be better to put on a patch this Sunday or wait until Sunday next week. Please advise. Greta Magallanes RN documented in this encounter [facility] 05-29-2022 History of Presen t illness Narrative Breanna presents for removal of IUD due to pain. UNIVERSAL PROTOCOL / SAFETY CHECKLIST Procedure to be Performed: IUD removal Sign In: A Moment of CARE was completed. Personnel directly involved with the procedure wore the appropriate PPE (Personal Protective Equipment). Patient/Surrogate Stated/Verified: PATIENT VERIFIED(optional for EMERGENT procedures): Patient name, Date of , Relevant allergies and The intended procedure Time Out Communication: Intended patient and procedure match the source documents. Consent documented and matches the intended procedure. Sign Out: SIGN OUT (optional for EMERGENT procedures): No specimen collected. All instruments, equipment, possible retained foreign bodies accounted for. Post-procedure follow-up management communicated and Plan of Care Visit completed when applicable. Nereida Mendoza APRN.CNP PROCEDURE: Speculum placed in vagina, IUD string visualized and grasped with ring forceps. ASSESSMENT/PLAN: IUD removed without difficulty, intact, and patient tolerated procedure well. Contraception plans: patch Nereida Mendoza APRN.RENETTA documented in this encounter [facility] 05-22-2022 Miscellaneous Notes Pt notified and appt scheduled. Lida Draper LPN Order filed Pt can schedule IUD removal and can discuss control options at that time See pt's mychart message about IUD removal. See pended order below. Lida Draper LPN documented in this encounter [facility] 03-22-2022 Miscellaneous Notes Patient notified. She will call back to schedule appointment if that's what she decides to do. Stephanie Fischer RN A small percentage of women have reported weight gain with the Mirena IUD. I cannot say for certain that her weight gain is attributed to her IUD. If she would like to discuss removal and other options for control, recommend scheduling follow up visit. Thanks Pt calling and asking about possible weight gain with Mirena? 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 Pt is also on Prozac 10mg which she knows can also contribute to some weight gain. Please advise. Lida Draper LPN documented in this encounter [facility] Encounter for IUD removal- Primary Encounter for removal of intrauterine contraceptive device Encounter for surveillance of transdermal patch hormonal contraceptive device [facility] Diagnosis Encounter for surveillance of transdermal patch hormonal contraceptive device [facility] Diagnosis Encounter for surveillance of transdermal patch hormonal contraceptive device [facility] Diagnosis Encounter for surveillance of transdermal patch hormonal contraceptive device [facility] Diagnosis Encounter for gynecological examination (general) (routine) without abnormal findings- Primary Encounter for surveillance of transdermal patch hormonal contraceptive device [facility] Outpatient Procedure (Routine) - Authorized Specialty Diagnoses / Procedures Referred By Kanika jewell Referred To Contact [facility] Diagnoses Encounter for IUD removal Encounter for insertion of intrauterine contraceptive device Procedures REMOVE INTRAUTERINE DEVICE REMOVE INTRAUTERINE DEVICE INSERT INTRAUTERINE DEVICE LEVONORGESTREL IU 52MG 5 YR Niurka Shukla MD [address] [place] [address] [facility] [address] [place] [address] Referral ID Status Reason Start Date Expiration Date Visits Requested Visits Authorized [id number] Authorized Auto-Generat ed Referral 05/22/2022 11/04/2022 2 2 [facility] Summary Purpose Family History No Family History Records Found Advance Directives No Advanced Directives Records Found Additional Source Comments Source Comments (unrecognize d section and content) In the event this informatio n is protected by the Federal Confidentiality of Alcohol and Drug Abuse Patient Records regulations: The Federal rules restrict any use of the information to criminally investigate or prosecute any alcohol or drug abuse patient.[facility] the event this information is protected by the Federal Confidentiality of Alcohol and Drug Abuse Patient Records regulations: The Federal rules restrict any use of the information to criminally investigate or prosecute any alcohol or drug abuse patient.[facility] the event this information is protected by the Federal Confidentiality of Alcohol and Drug Abuse Patient Records regulations: The Federal rules restrict any use of the information to criminally investigate or prosecute any alcohol or drug abuse patient.[facility] the event this information is protected by the Federal Confidentiality of Alcohol and Drug Abuse Patient Records regulations: The Federal rules restrict any use of the information to criminally investigate or prosecute any alcohol or drug abuse patient.[facility] the event this information is protected by the Federal Confidentiality of Alcohol and Drug Abuse Patient Records regulations: The Federal rules restrict any use of the information to criminally investigate or prosecute any alcohol or drug abuse patient.[facility] the event this information is protected by the Federal Confidentiality of Alcohol and Drug Abuse Patient Records regulations: The Federal rules restrict any use of the information to criminally investigate or prosecute any alcohol or drug abuse patient.[facility] the event this information is protected by the Federal Confidentiality of Alcohol and Drug Abuse Patient Records regulations: The Federal rules restrict any use of the information to criminally investigate or prosecute any alcohol or drug abuse patient.[facility] the event this information is protected by the Federal Confidentiality of Alcohol and Drug Abuse Patient Records regulations: The Federal rules restrict any use of the information to criminally investigate or prosecute any alcohol or drug abuse patient.[facility] the event this information is protected by the Federal Confidentiality of Alcohol and Drug Abuse Patient Records regulations: The Federal rules restrict any use of the information to criminally investigate or prosecute any alcohol or drug abuse patient.[facility] the event this information is protected by the Federal Confidentiality of Alcohol and Drug Abuse Patient Records regulations: The Federal rules restrict any use of the information to criminally investigate or prosecute any alcohol or drug abuse patient.[facility] the event this information is protected by the Federal Confidentiality of Alcohol and Drug Abuse Patient Records regulations: The Federal rules restrict any use of the information to criminally investigate or prosecute any alcohol or drug abuse patient.[facility] the event this information is protected by the Federal Confidentiality of Alcohol and Drug Abuse Patient Records regulations: The Federal rules restrict any use of the information to criminally investigate or prosecute any alcohol or drug abuse patient.[facility] Reason for Visit (unrecogniz ed section and content) Reason Comments IUD Specialty Diagnoses / Procedures Referred By Kanika jewell Referred To Contact [facility] Diagnoses Encounter for IUD removal Encounter for insertion of intrauterine contraceptive device Procedures REMOVE INTRAUTERINE DEVICE REMOVE INTRAUTERINE DEVICE INSERT INTRAUTERINE DEVICE LEVONORGESTREL IU 52MG 5 YR Niurka Shukla MD [address] [place] [address] [facility] [address] [address] Referral ID Status Reason Start Date Expiration Date Visits Requested Visits Authorized [id number] Authorized Auto-Generat ed Referral 05/22/2022 11/04/2022 2 2 Reason Comments Medication Question Reason Onset Date Comments Refill Request 10/04/2022 Reason Onset Date Comments Refill Request 10/23/2022 Reason Onset Date Comments Refill Request 11/01/2022 Reason Comments Patient Question AUB with Xulane patc h Reason Comments BTB with Xulane Patch Reason Onset Date Comments Refill Request 09/11/2023 Reason Comments Yearly Exam Care Teams (unrecognized sec tion and content) Internal Medicine Hospitalist Relationship Specialty Start Date End Date Sandy Steward MD [address], [place] [id number] PCP - General Family Practice 03/22/16 Internal Medicine Hospitalist Relationship Specialty Start Date End Date Sandy Steward MD [address], [place] [id number] PCP - General Family Practice 03/22/16 Internal Medicine Hospitalist Relationship Specialty Start Date End Date Sandy Steward MD [address], [place] [id number] PCP - General Family Practice 03/22/16 Internal Medicine Hospitalist Relationship Specialty Start Date End Date Sandy Steward MD [address] [place] [address] PCP - General Family Medicine 03/22/16 Internal Medicine Hospitalist Relationship Specialty Start Date End Date Sandy Steward MD [address] [place] [address] PCP - General Family Medicine 03/22/16 Internal Medicine Hospitalist Relationship Specialty Start Date End Date Sandy Steward MD [address] [place] [address] PCP - General Family Medicine 03/22/16 Internal Medicine Hospitalist Relationship Specialty Start Date End Date Sandy Steward MD [address] [place] [address] PCP - General Family Medicine 03/22/16 Internal Medicine Hospitalist Relationship Specialty Start Date End Date Sandy Steward MD [address] [place] [address] PCP - General Family Medicine 03/22/16 Internal Medicine Hospitalist Relationship Specialty Start Date End Date Sandy Steward MD [address] [place] [address] PCP - General Family Medicine 03/22/16 INFORMATION SOURCE (unrecogn ized section and content) FOR RECORDS PERTAINING TO PATIENTS WHO ARE OR HAVE BEEN ENROLLED IN A CHEMICAL DEPENDENCY/SUBSTANCEABUSE PROGRAM, SOME INFORMATION MAY BE OMITTED. This clinical summary was aggregated from multiple sources. Caution should be exercised in using it in the provision of clinical care. This summary normalizes information from multiple sources, and as a consequence, information in this document may materially change the coding, format and clinical context of patient data. In addition, data may be omitted in some cases. CLINICAL DECISIONS SHOULD BE BASED ON THE PRIMARY CLINICAL RECORDS. [facility] [employer] [facility] provides no warranty or guarantee of the accuracy or completeness of information in this document.
[2023-12-14 10:43] LABS: Vitamin D,25 Hydroxy 45.7 ng/mL
[2023-12-14 11:01] LABS: Anion Gap 5 (5-15); BUN 14 mg/dL (7-18); Calcium,Total 8.8 mg/dL (8.5-10.1); Chloride 107 mmol/L (98-107); Cholesterol 211 mg/dL (200); Creatinine, Serum 0.87 mg/dL (0.55-1.02); EST Glomerular Filtration Rate 80 mL/min (>60); Est Glom Filt Rate - Afr Amer 96 mL/min (>60); Glucose 89 mg/dL (74-106); High Density Lipoprotein 72 mg/dL; Sodium Level 138 mmol/L (136-145); Thyroid Stim Hormone (TSH) 1.46 uIU/mL (0.358-3.74); Triglycerides 117 mg/dL; Very Low Density Lipoprotein 23 mg/dL (5-40)
== END | disposition home or self-care (01) ==
LOC: MFPLAB 08:08
PROVIDERS: PCP Family Medicine; Visit Provider Family Medicine
DX: Z13.1 Encounter for screening for diabetes mellitus (principal); F32.A Depression, unspecified
CPT/HCPCS: 36415; 80048; 80061; 82306; 84443